=== PATIENT | male | born 1995 | race Caucasian/White ===

== ENCOUNTER 2018-10-29 11:25 | Emergency (ER) | payer BC, MEDICAID ==
[2018-10-29 11:45] VITALS: BP 137/92
--- NOTE | 2018-10-29 12:01 | UC ---
FLU HPI - HPI Summary HPI Summary: 23 year old male with PMH + for allergies presents with 5 days of fatigue, body aches, low grade fever to 100, mild throat pain, midl sinus congestion. + vomiting x 1 today, diarrhea x 2 days. 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 - Allergy/Home Medications Allergies/Adverse Reactions: Allergies Allergy/AdvReac Type Severity Reaction Status Date / Time Seasonal Allergies Allergy Intermediate Congestion Uncoded 10/29/18 11:45 Home Medications: Home Medications Multivitamin [Multivitamins] 1 cap PO DAILY 10/29/18 [History Confirmed 10/29/18 ] Sertraline* [Zoloft*] 50 mg PO DAILY 10/29/18 [History Confirmed 10/29/18] diphenhydrAMINE HCl [Zzzquil] 12.5 mg PO BEDTIME PRN 10/29/18 [History Confirmed 10/29/18] PMH/Surg Hx/FS Hx/Imm Hx Previously Healthy: Yes - Surgical History Surgical History: None - Social History Alcohol Use: Daily Alcohol Amount: 1-2 Substance Use Type: None Smoking Status (MU): Light Every Day Tobacco Smoker Type: Cigarettes Amount Used/How Often: 1/2 pack per week Household Exposure Type: Cigarettes Review of Systems All Other Systems Reviewed And Are Negative: Yes Constitutional: Positive: Fever, Chills, Fatigue ENT: Positive: Sore Throat - mild, Nasal Discharge, Sinus Congestion - mild Gastrointestinal: Positive: Vomiting, Diarrhea - x 2 days, Nausea - this AM Motor: Positive: Weakness - generalized Is Patient Immunocompromised?: No Physical Exam Triage Information Reviewed: Yes Appearance: No Pain Distress, Well-Nourished, Ill-Appearing - mild Vital Signs: Initial Vital Signs Temp 97.6 F 10/29/18 11:41 Pulse 70 10/29/18 11:41 Resp 16 10/29/18 11:41 BP 137/92 10/29/18 11:41 Pulse Ox 99 10/29/18 11:41 Vital Signs Reviewed: Yes Eyes: Positive: Conjunctiva Clear ENT: Positive: Pharyngeal erythema - mild, TMs normal, Uvula midline. Negative : TM bulging, TM dull, TM red, Tonsillar swelling, Tonsillar exudate, Sinus tenderness Neck: Positive: Supple, Nontender, No Lymphadenopathy - minimal submand, no posterior LAD. Negative: Nuchal Rigidity Respiratory: Positive: Chest non-tender, Lungs clear, Normal breath sounds, No respiratory distress, No accessory muscle use. Negative: Crackles, Rhonchi, Stridor, Wheezing Abdomen Description: Positive: Nontender, No Organomegaly, Soft. Negative: CVA Tenderness (R), CVA Tenderness (L), Splenomegaly Neurological Exam: Normal Psychological Exam: Normal Flu Course/Dx - Course Course Of Treatment: rapid flu- negative, viral URI, treat conservatively, return if worsens - Differential Dx/Diagnosis Differential Diagnosis/HQI/PQRI: Influenza, RSV, Upper Respiratory Infection Provider Diagnosis: Viral URI Discharge - Sign-Out/Discharge Documenting (check all that apply): Patient Departure All imaging exams completed and their final reports reviewed: No Studies - Discharge Plan Condition: Good Disposition: HOME Prescriptions: Ondansetron ODT TAB* [Zofran 4 MG Odt TAB*] 4 mg PO Q6H PRN #5 tab.odt PRN Reason: nausea, vomiting Patient Education Materials: Viral Syndrome (ED) Forms: *Work Release Referrals: Laura Raman MD [Primary Care Provider] - Additional Instructions: - increase fluid intake - Increase rest - Work note given - FOllow up with primary if no improvement of symtpoms within 2-3 days - Go to ER with neck stiffness, fever > 102, abdominal pains, shortness of breath - Billing Disposition and Condition Condition: GOOD Disposition: Home
[2018-10-29 12:06] LABS: Influenza A Molecular NEGATIVE (Negative); Influenza B Molecular NEGATIVE (Negative)
== END 2018-10-29 12:40 | disposition home or self-care (01) ==
LOC: UCEAST 11:25
DX: J06.9 Acute upper respiratory infection, unspecified (principal); F17.210 Nicotine dependence, cigarettes, uncomplicated; R19.7 Diarrhea, unspecified; R11.10 Vomiting, unspecified; M79.10 Myalgia, unspecified site; Z91.09 Other allergy status, other than to drugs and biological substances
CPT/HCPCS: 99202; G0463

== ENCOUNTER 2019-03-15 09:29 | Emergency (ER) | payer BC ==
[2019-03-15 10:00] VITALS: BP 146/89
--- NOTE | 2019-03-15 10:49 | UC ---
Dental HPI - HPI Summary HPI Summary: Pt presents with c/o gradual onset of left side cheek swelling, tenderness. Pt had previous dental work on left side, was seen by dentist, was told he needsa root canal and given keflex. Pt has been taking 3000 mg of Ibuprofen daily. Pt was instructed to stop takin gthat amount. - History of Current Complaint Chief Complaint: UCDentalProblem Stated Complaint: FACIAL PAIN/SWELLING Time Seen by Provider: 03/15/19 10:36 Hx Obtained From: Patient Onset/Duration: Gradual Onset, Lasting Days, Still Present, Worse Since - onset Severity: Severe Pain Intensity: 8 Aggravating Factor(s): Heat, Cold, Chewing Alleviating Factor(s): Nothing Related History: Previous Dental Care on Same Tooth, Swelling - Allergies/Home Medications Allergies/Adverse Reactions: Allergies Allergy/AdvReac Type Severity Reaction Status Date / Time No Known Allergies Allergy Verified 03/15/19 10:00 Home Medications: Home Medications Ibuprofen TAB* [Advil TAB*] 1,400 mg PO Q6H PRN 03/15/19 [History Confirmed 08/22] PMH/Surg Hx/FS Hx/Imm Hx Previously Healthy: Yes - Surgical History Surgical History: None - Family History Known Family History: Positive: Cardiac Disease - Social History Occupation: Employed Full-time Lives: With Family Alcohol Use: Rare Alcohol Amount: 1-2 Substance Use Type: None Smoking Status (MU): Light Every Day Tobacco Smoker Type: Cigarettes Amount Used/How Often: 1/2 pack per week Have You Smoked in the Last Year: Yes Household Exposure Type: Cigarettes - Immunization History Vaccination Up to Date: Yes Review of Systems All Other Systems Reviewed And Are Negative: Yes Constitutional: Positive: Negative Skin: Positive: Negative Eyes: Positive: Negative ENT: Positive: Dental Pain Respiratory: Positive: Negative Cardiovascular: Positive: Negative Gastrointestinal: Positive: Negative Genitourinary: Positive: Negative Motor: Positive: Negative Neurovascular: Positive: Negative Musculoskeletal: Positive: Negative Neurological: Positive: Negative Psychological: Positive: Negative Is Patient Immunocompromised?: No Physical Exam Triage Information Reviewed: Yes Appearance: Pain Distress Vital Signs: Initial Vital Signs Temp 99.2 F 03/15/19 09:53 Pulse 83 03/15/19 09:53 Resp 18 03/15/19 09:53 BP 146/89 03/15/19 09:53 Pulse Ox 100 03/15/19 09:53 Vital Signs Reviewed: Yes Eye Exam: Normal ENT Exam: Normal Dental: Positive: Percussion Tenderness @ - left lower #18 tooth. left cheek swollen. pt unable to ope mouth well. no abscess visualized. Neck exam: Normal Respiratory Exam: Normal Cardiovascular Exam: Normal Musculoskeletal Exam: Normal Neurological Exam: Normal Psychological Exam: Normal Skin Exam: Normal Dental Complaint Course/Dx - Differential Dx/Diagnosis Differential Diagnosis/Dx: Dental Abscess, Dental Caries Provider Diagnosis: Dental abscess Discharge - Sign-Out/Discharge Documenting (check all that apply): Patient Departure All imaging exams completed and their final reports reviewed: No Studies - Discharge Plan Condition: Stable Disposition: HOME Prescriptions: Chlorhexidine MOUTHWASH 0.12%* [Peridex Mouth Wash 0.12%*] 15 ml MT Q12H 7 Days #1 btl Clindamycin HCl 300 mg PO Q6H #28 capsule predniSONE TAB* [Deltasone 10 MG TAB*] 30 mg PO DAILY #18 tab Patient Education Materials: Dental Abscess (ED) Referrals: Laura Raman MD [Primary Care Provider] - If Needed Additional Instructions: Please follow up with one of the dentists listed below or one of your choice. Dr. Jessi Astudillo, [facility] [place], [place] Address: [address] [place] [address] Hours: Open ? Closes 5PM Iraida Man DDS [facility]ist in [place], [place] Address: [address] [place] [id number] - Billing Disposition and Condition Condition: STABLE Disposition: Home
== END 2019-03-15 11:03 | disposition home or self-care (01) ==
LOC: UCCORT 09:29
DX: K04.7 Periapical abscess without sinus (principal); F17.210 Nicotine dependence, cigarettes, uncomplicated
CPT/HCPCS: 99212; G0463